=== PATIENT | male | born 1990 | race Caucasian/White ===

== ENCOUNTER 2017-01-15 05:14 | Emergency (ER) | payer SELFPAY ==
[~2017-01-15] VITALS: Ht 185.4 cm; Wt 86.4 kg
[2017-01-15 05:20] VITALS: BP 126/80; PULSE 88; RESP 20; O2SAT 97
--- NOTE | 2017-01-15 06:03 | ED.REPORT ---
HPI-General Illness Date of Service Jan 15, 2017 ED Provider: Doc,Ed MD The patient is an otherwise healthy 26 year old male who presents to the emergency department concerned he may have parasites. He states, "they are coming out of me like a constitution party or something." He reports they are coming out of his eyes, ears, mouth, and skin, and in his urine. He is unable to find a worm to show me during the interview. He admits to meth use. He denies any other drug use or alcohol use. He denies any history of medical problems. Nursing Notes Stated Complaint: POSS PARASITES Chief Complaint: General Complaint Nursing Notes Reviewed: Yes Allergies: Coded Allergies: No Known Allergies (Unverified , 01/15/17) General Time Seen by MD: 06:02 Chief Complaint Other (concerned for parasites) Hx Obtained From: Patient Arrived By: Walk-in Sudden in Onset?: No Onset Occurred: Onset unknown Symptom Duration: Duration unknown Severity: Current: Moderate Severity: Maximum: Severe Recent Healthcare: No recent doctor visit, No recent hospitalization Past Medical History Past Medical History Denies Denies: Diabetes mellitus, Hypertension Family History Noncontributory Social History Alcohol Use: Denies alcohol use Drug Use: Meth Other Social History: Local resident Ambulatory Status Independent Review of Systems +concerned for parasites Complete sys rev & neg: except as marked. Physical Exam Vital Signs Vital Signs Date Time Temp Pulse Resp B/P Pulse Ox O2 Delivery O2 Flow Rate FiO2 01/15/17 05:20 36.7 88 20 126/80 97 Room Air Initial VS: Reviewed Head / Eyes: Atraumatic, Normocephalic, PERRL ENT: Mucous membranes moist, Conjunctiva normal, No scleral icterus Neck: Supple, Non-tender, Full range of motion Respiratory: Breath sounds normal, Clear to auscultation, No respiratory distress Cardiovascular: Regular rate & rhythm, Heart sounds normal, Intact distal pulses Abdomen / GI: Soft, Non-tender, No guarding, No rebound, No distention Lymphatic: No lymphadenopathy Extremities: Vascular intact, Neuro intact, No swelling, No tenderness Neurologic: Alert, Oriented, Nonfocal Psychiatric: Mood/affect normal, Behavior normal, Normal thought content General/Constitutional: Awake, Alert Skin: Warm Rash / Lesion Notes: There are multiple excoriated lesions on face, arms, and neck consistent with self excoriation. No parasites are seen. No foreign material seen. There is just eschar and skin breakdown from picking. Interpretation & Diagnostics Interpretation & Diagnostics: Urine drug screen: positive for THC, methamphetamines, and opiates Lab Results Interpretation Test 01/15/17 05:45 Hold Urine Received (Received) Re-Eval/Medical Decision Source of Hx: Old records Time of Eval: 06:13 Re-Evaluation/Progress Note: The patient is still unable to produce a parasite. Discussed findings, diagnosis, and plan for discharge. Time of Eval: 06:25 Re-Evaluation/Progress Note: The patient left without getting his discharge instructions. The patient was obviously irritated with me for not seemingly taking him seriously. He seemed completely unconvinced that there were no parasites present despite multiple attempts to convince him to the contrary. As soon as I told him that no parasites were identified that required treatment, he promptly got off the gurney and left the emergency department. 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 We were unable to visualize any parasites during your examination today. Your symptoms are most likely due to your meth use. I recommend that you stop using meth. If you stop using meth for 3 weeks and you still have symptoms you may want to have a biopsy. Please return to the emergency department for any new or concerning symptoms. Referrals: [facility] (PCP) Scribe Attestation Portions of this note were transcribed by Shae Sanders. I, Dr. Mccullough personally performed the history, physical exam and medical decision-making; I reviewed and confirmed the accuracy of the information in the transcribed note. Signed by: Garret Del Cid, 01/15/2017 at 0628. Newton Mccullough MD Jan 15, 2017 06:03 Shae Sanders Jan 15, 2017 06:05
== END 2017-01-15 06:20 | disposition home or self-care (01) ==
LOC: SED 05:14
DX: F15.20 Other stimulant dependence, uncomplicated (principal); F63.3 Trichotillomania

== ENCOUNTER 2017-02-04 09:05 | Emergency (ER) | payer SELFPAY ==
[~2017-02-04] VITALS: Ht 185.4 cm; Wt 90.9 kg
[2017-02-04 09:12] VITALS: BP 131/85; PULSE 84; RESP 14; O2SAT 98
--- NOTE | 2017-02-04 09:49 | ED.REPORT ---
HPI-General Illness Date of Service Feb 04, 2017 ED Provider: Gabriel Myers MD 26 year old male with a hx of meth use presents to the emergency department concerned he may have parasites. He states "they are coming out of his eyes, ears, mouth, and everywhere else". He also complains of left middle finger swelling. He was seen here in the ED earlier this month with similar complaints of parasitosis at which time no parasites or foreign bodies were discovered. Nursing Notes Stated Complaint: POSS WORMS Chief Complaint: General Complaint Nursing Notes Reviewed: Yes Allergies: Coded Allergies: No Known Allergies (Unverified , 01/15/17) Scheduled Sulfamethoxazole/Trimeth 800-160 mg (Bactrim DS) 1 Each Tablet 1 TABLET PO BID Scheduled PRN diphenhydrAMINE HCl (Benadryl) 25 Mg Capsule 25 MG PO Q4 PRN PRN For Itching General Time Seen by MD: 09:18 Chief Complaint Other (Sensation of paraasites ) Hx Obtained From: Patient Arrived By: Walk-in Onset Occurred: More than a week ago... (2 weeks) Symptom Duration: Since onset Quality: Same as prior Severity: Current: No pain currently Severity: Maximum: No pain Recent Healthcare: Recent doctor visit Similar Sx Previous: Yes Past Medical History Past Medical History Meth abuse Past Surgical History Denies Family History Noncontributory Smoking History Smoker Current Status UNK Social History Alcohol Use: Denies alcohol use Drug Use: Meth Other Social History: Local resident Ambulatory Status Independent Review of Systems +concerned for parasites Full Review of Systems Musculoskeletal: Reports: Extremity pain, Extremity swelling Complete sys rev & neg: except as marked. Physical Exam Vital Signs Vital Signs Date Time Temp Pulse Resp B/P Pulse Ox O2 Delivery O2 Flow Rate FiO2 02/04/17 11:53 77 12 112/80 100 02/04/17 09:12 36.6 84 14 131/85 98 Room Air Initial VS: Reviewed, Vital signs normal Head / Eyes: Atraumatic, Normocephalic, PERRL ENT: Mucous membranes moist, Conjunctiva normal, No scleral icterus Neck: Supple, Non-tender, Full range of motion Respiratory: Breath sounds normal, Clear to auscultation, No respiratory distress Cardiovascular: Regular rate & rhythm, Heart sounds normal, Intact distal pulses Abdomen / GI: Soft, Non-tender, No guarding, No rebound, No distention Skin: Warm, Dry, No cyanosis Neurologic: Alert, Oriented, Nonfocal General/Constitutional: Awake, Alert, Cooperative Back: Atraumatic, Full range of motion Upper Extremities Upper Extremity / MS: Atraumatic, Full range of motion Multiple excoriations bilaterally on upper extremities. Wrist / Hand: Atraumatic, Full range of motion Left distal middle finger with erythema and swelling. No fluctuance. Interpretation & Diagnostics X-Ray Interpretation Xray Interpretation: IMPRESSION: No acute osseous abnormality of the left hand. Dictated by: Thierry Patricio M.D. on 02/04/2017 at 9:29 Approved by: Thierry Patricio M.D. on 02/04/2017 at 9:29 X-Ray Ordered: Hand left Interpretation / Wet Read by: Interpret - Radiologist Re-Eval/Medical Decision Med Decision/Clinical Course 26-year-old male history of IV drug use and methamphetamine abuse presenting with concerns that parasites are coming out of his eyes and his mouth and his skin. He was seen for similar recently and diagnosed with trichotillomania. He does have a mild left middle finger distal cellulitis with no joint involvement, no abscess, no ulcer, normal x-ray with no osteomyelitis. Patient did initially request resources regarding detox and he spoke with the crisis respite team and they did not have any beds. He then requested to go home. We will give him antibiotics for his very small focal area of cellulitis with return precautions if any new or worsening redness, joint involvement, difficulty moving his fingers or hand, fevers, nausea vomiting, since symptoms of abscess or any other new or worsening symptoms. Patient agrees with the plan. Source of Hx: Old records Time of Eval: 11:20 Re-Evaluation/Progress Note: Pt rechecked. Pt doesn't want to go to REHAB. Discussed imaging results and diagnosis. Informed the pt of the plan to discharge. Pt understands and agrees with plan. F/U instructions and RTER warning given. All questions addressed. Counseled Regarding: Diagnosis, Need for follow-up, When/why to return to ED Discharge & Departure Primary Impression: Cellulitis of left middle finger Additional Impressions: Methamphetamine abuse Delusions of parasitosis Disposition: Home Discharge Condition All VS Reviewed: Yes Condition: Stable Patient Instructions: Cellulitis (ED), Methamphetamine Abuse (ED) Additional Instructions: Your X-ray was normal. You have a skin infection. Return to the emergency department in case of any increased redness, swelling, nausea, vomiting, fever or any new or worsening symptoms. Referrals: [facility] Scribe Attestation Portions of this note were transcribed by Cristiane Sharp and Saurav Cedeño. I, , personally performed the history, physical exam and medical decision-making;I reviewed and confirmed the accuracy of the information in the transcribed note. Signed by Cristiane Sharp and Garret Lowry. 02/04/17 1200 copies to: [facility] Gabriel Myers MD Feb 04, 2017 09:49 Cristiane Sharp Feb 04, 2017 09:57 SAURAV CEDEÑO Feb 04, 2017 10:59
--- NOTE | 2017-02-04 10:31 | DRSVH ---
PROCEDURE: X-RAY FINGERS, TWO VIEWS INDICATIONS: L middle finger TECHNIQUE: AP hand, 2 views of the middle finger(s) acquired. COMPARISON: None. FINDINGS: Bones: No fractures or dislocations. No suspicious bony lesions. The bone mineralization is within normal limits. No significant degenerative changes of the left hand are evident. Soft tissues: No suspicious soft tissue calcifications. IMPRESSION: No acute osseous abnormality of the left hand. Dictated by: Thierry Patricio M.D. on 02/04/2017 at 9:29 Approved by: Thierry Patricio M.D. on 02/04/2017 at 9:29
[2017-02-04] MEDS ORDERED: DIPH25CA6 PO (11:31)
[2017-02-04] MEDS ORDERED: SULF1TAB7 PO (11:31)
[2017-02-04 11:53] VITALS: BP 112/80; PULSE 77; RESP 12; O2SAT 100
== END 2017-02-04 11:55 | disposition home or self-care (01) ==
LOC: SED 09:05
DX: L03.012 Cellulitis of left finger (principal); F15.250 Other stimulant dependence with stimulant-induced psychotic disorder with delusions